=== PATIENT | female | born 1955 | race Caucasian/White ===

== ENCOUNTER 2018-11-19 16:44 | Emergency (ER) | payer OTHER ==
--- OUTSIDE RECORDS SUMMARY | 2018-11-19 16:46 | XMS REPORT | Clinical Summary ---
:1955 Author Organization [facility] Address [address] [place] [address] Care Team Providers Name Role Phone Slime Werner Primary Care Provider Allergies No Known Allergies Medications Medication Sig Dispensed Refills Start Date End Date Status telmisartan-hydrochlorot Take 1 tablet by 0 Active hiazid (MICARDIS HCT) mouth daily. 40-12.5 mg per tablet metFORMIN (GLUCOPHAGE) Take 500 mg by 0 Active 500 mg tablet mouth 2 (two) times a day with meals. levothyroxine Take 50 mcg by 0 Active (SYNTHROID, LEVOXYL) 50 mouth every mcg tablet morning. atorvastatin (LIPITOR) Take 40 mg by 0 Active 40 MG tablet mouth daily. Active Problems Problem Noted Date Precordial pain 12/16/2016 Essential hypertension 12/16/2016 Mixed hyperlipidemia 12/16/2016 Acquired hypothyroidism 12/16/2016 Hx of renal cell cancer 12/16/2016 Type 2 diabetes mellitus without complication 12/16/2016 Family History Relation Name Status Comments Father Mother Social History Tobacco Use Types Packs/Day Years Used Date Former Smoker Sex Assigned at Date Recorded Not on file Job Start Date Occupation Industry Not on file Not on file Not on file Travel History Travel Start Travel End No recent travel history available. Last Filed Vital Signs Not on file Plan of Treatment Health Maintenance Due Date Last Done Comments DIABETIC RETINAL EYE EXAM 1955 DIABETIC FOOT EXAM 02/21/1966 CERVICAL CANCER SCREENING 02/21/1977 BREAST CANCER SCREENING 02/21/2006 COLON CANCER SCREENING 02/21/2006 SHINGLES VACCINES (#1) 02/21/2006 INFLUENZA VACCINE 03/23/2018 Results Not on fileafter 11/18/2017 Insurance Payer Benefit Plan / Group Subscriber ID Type Phone Address [facility] x[facility] AETNA AETNA PPO OPEN CHOICE xxxxxxxxx PPO [id number] [id number] (Home) [place] [id number]
--- OUTSIDE RECORDS SUMMARY | 2018-11-19 16:46 | XMS REPORT | Clinical Summary ---
:1955 Author Organization [facility] Address [address] [place] [address] Care Team Providers Name Role Phone Unavailable Primary Care Provider Unavailable Allergies Not on File Medications Not on file Active Problems Not on file Social History Tobacco Use Types Packs/Day Years Used Date Never Assessed Sex Assigned at Date Recorded Not on file Job Start Date Occupation Industry Not on file Not on file Not on file Travel History Travel Start Travel End No recent travel history available. Last Filed Vital Signs Not on file Plan of Treatment Not on file Results Not on fileafter 11/18/2017 Insurance Payer Benefit Plan / Group Subscriber ID Type Phone Address AETNA - [employer]GD CARE AETNA HMO POS QPOS xxxxxxxxx HMO/POS FOR LIFE xxxxxxxxx Other Govt (, [place], [place], etc.) xxxxxxxxx Other Govt (, [place], [place], etc.)
[2018-11-19 17:35] LABS: Absolute Lymphocytes (CBC) 3.3 K/uL (0.7-4.9); Absolute Monocytes 0.8 K/uL (0.1-1.3); Absolute Neutrophil 5.6 K/uL (1.8-8.0); Hematocrit 42.8 % (36.0-45.0); MPV 10.4 fL (7.6-11.3); Monocytes % 7.6 % (3.3-12.3); RBC Red Blood Cell Count 4.63 M/uL (3.86-4.86)
[2018-11-19 17:44] LABS: ALT/SGPT 50 U/L (12-78); AST/SGOT 27 U/L (15-37); Albumin 3.8 g/dL (3.4-5.0); Alkaline Phosphatase 142 U/L (45-117); BUN Blood Urea Nitrogen 15 mg/dL (7-18); Bicarbonate 26 mmol/L (21-32); Bilirubin Direct < 0.1 mg/dL (0-0.2); Bilirubin Total 0.3 mg/dL (0.2-1.0); Glucose Level 113 mg/dL (74-106); Lipase 142 U/L (73-393); Protein, Total 7.3 g/dL (6.4-8.2); Sodium Level 143 mmol/L (136-145)
--- NOTE | 2018-11-19 19:59 | RAD REPORT ---
EXAM DESCRIPTION: CTAbdomen Pelvis W Contrast - 11/19/2018 7:47 pm CLINICAL HISTORY: Abdominal pain. ABD PAIN COMPARISON: CT ABDOMEN PELVIS WO CONTRAST dated 05/06/2015 TECHNIQUE: Biphasic CT imaging of the abdomen and pelvis was performed with 100 ml non-ionic IV cont rast. All CT scans are performed using dose optimization technique as appropriate and may include automated exposure control or mA/KV adjustment according to patient size. FINDINGS: Mild linear opacities are present in the posterior right lung base likely representing min imal infiltrate or atelectasis.Moderate hiatal hernia. Diffuse fatty liver is present. Cholecystectomy clips are seen. The spleen, pancreas and right adrena l gland is normal. The left adrenal gland contains an 8 mm myelolipoma. 17 mm parapelvic right renal cyst is present. No right-sided hydronephrosis. Two stones are present in the mid left ureter, the in ferior stone measuring 6 mm and the slightly more superior stone measuring 4 mm. Mild left hydronephr osis is present. Postsurgical changes are present involving the left kidney. No bowel obstruction, free air, free fluid or abscess. Sigmoid diverticulosis is present without dive rticulitis. The appendix is not identified as a discrete structure, however, no secondary findings of appendicitis are identified. Small to moderate fat containing ventral hernia is present. Ventral he rnia is also present inferior anterior pelvis, also containing fat. No evidence of significant lympha denopathy. No suspicious bony findings. IMPRESSION: Two calculi are noted in the mid left ureter as detailed resulting in mild left hydronep hrosis. Fat containing ventral hernias are present in the lower abdomen and pelvis without bowel involvement. Sigmoid diverticulosis coli is present without diverticulitis. Fatty liver.
[2018-11-19] MEDS ORDERED: MAGNESIUM SULFATE 1 gm IVPB 1 GM/100 ML BAG IV ONE (20:29)
[2018-11-19] MEDS ORDERED: NA CHLORIDE 0.9% 1,000 ML ONE (20:29)
[2018-11-19] MEDS ORDERED: TAMSULOSIN 0.4 MG SR CAP ONE (20:29)
[2018-11-19] MEDS ORDERED: CEFTRIAXONE/SWI 1gm 1 GM/10 ML SYR ONE (20:30)
--- NOTE | 2018-11-19 22:21 | ER ---
Nurse's Notes [facility] Name: Lotus Choi Age: 63 yrs Sex: Female : 1955 Arrival Date: 11/19/2018 Time: 16:48 Bed 16 Private MD: Diagnosis: Calculus of ureter-Left times 2;Ventral hernia without obstruction or gangrene-times 2 Presentation: 11/19 16:51 Presenting complaint: Patient states: I have been having a "pulling pain" on my right la1 side of my belly and when I cough I feel a knot that comes up. Pt denies N/V/D or fevers. Transition of care: patient was not received from another setting of care. Onset of symptoms was November 19, 2018. Risk Assessment: Do you want to hurt yourself or someone else? Patient reports no desire to harm self or others. Initial Sepsis Screen: Does the patient meet any 2 criteria? No. Patient's initial sepsis screen is negative. Does the patient have a suspected source of infection? No. Patient's initial sepsis screen is negative. Care prior to arrival: None. 16:51 Method Of Arrival: Ambulatory la1 16:51 Acuity: JENNIFER 3 la1 Historical: - Allergies: 16:52 No Known Allergies; la1 - PMHx: 16:52 Diabetes - NIDDM; Hypertension; Hypothyroidism; la1 - PSHx: 16:52 Hysterectomy; Kidney Ca; la1 - Immunization history:: Adult Immunizations up to date. - Social history:: Smoking status: Patient/guardian denies using tobacco. - Ebola Screening: : No symptoms or risks identified at this time. - Family history:: not pertinent. - Hospitalizations: : No recent hospitalization is reported. Screenin:54 Abuse screen: Denies threats or abuse. Nutritional screening: No deficits noted. tw2 Tuberculosis screening: No symptoms or risk factors identified. Fall Risk None identified. Assessment: 17:26 General: Appears in no apparent distress. obese, well groomed, Behavior is calm, tw2 cooperative, appropriate for age. Pain: Complains of pain in right lower quadrant. Neuro: Level of Consciousness is awake, alert, obeys commands, Oriented to person, place, time, situation. Cardiovascular: Heart tones S1 Capillary refill < 3 seconds Patient's skin is warm and dry. Respiratory: Airway is patent Respiratory effort is even, unlabored, Respiratory pattern is regular, symmetrical, Breath sounds are clear bilaterally. GI: Abdomen is round non-distended, obese, Bowel sounds present X 4 quads. Reports lower abdominal pain, normal bowel habits, "a tearing sensation that comes and goes" Patient currently denies nausea, vomiting. : No signs and/or symptoms were reported regarding the genitourinary system. EENT: No signs and/or symptoms were reported regarding the EENT system. Derm: No signs and/or symptoms reported regarding the dermatologic system. Musculoskeletal: Range of motion: intact in all extremities. 17:45 Reassessment: PT COMPLETED ORAL CONTRAST AT THIS TIME, no answer in CT dept. tw2 17:58 Reassessment: Patient appears in no apparent distress at this time. No changes from tw2 previously documented assessment. Patient and/or family updated on plan of care and expected duration. Pain level reassessed. Patient is alert, oriented x 3, equal unlabored respirations, skin warm/dry/pink. 18:36 Reassessment: Patient appears in no apparent distress at this time. No changes from tw2 previously documented assessment. Patient and/or family updated on plan of care and expected duration. Pain level reassessed. Patient is alert, oriented x 3, equal unlabored respirations, skin warm/dry/pink. 19:00 General: Appears in no apparent distress. comfortable, obese, well groomed, Behavior is rr5 calm, cooperative, appropriate for age. Pain: Complains of pain in right lower quadrant Quality of pain is described as aching, Pain began gradually, Is intermittent. Neuro: Level of Consciousness is awake, alert, obeys commands, Oriented to person, place, time, situation. Cardiovascular: Capillary refill < 3 seconds Patient's skin is warm and dry. Respiratory: Airway is patent Respiratory effort is even, unlabored, Respiratory pattern is regular, symmetrical. GI: Abdomen is round non-distended, obese, Reports lower abdominal pain, Patient currently denies nausea, vomiting. : Reports pain flank(s). 19:00 Reassessment: awaiting for CT scan due. oral contrast consumed at 1745. CT staff aware. rr5 EENT: No signs and/or symptoms were reported regarding the EENT system. Derm: Skin temperature is warm. Musculoskeletal: Capillary refill < 3 seconds, Range of motion: intact in all extremities. 19:50 Reassessment: Patient appears in no apparent distress at this time. Patient is alert, rr5 oriented x 3, equal unlabored respirations, skin warm/dry/pink. back from CT scan. 20:25 Reassessment: Patient appears in no apparent distress at this time. Patient is alert, rr5 oriented x 3, equal unlabored respirations, skin warm/dry/pink. reassess by ED provider with additional order made and carried out. CT result of kidney stone. 21:00 Reassessment: Patient appears in no apparent distress at this time. No changes from rr5 previously documented assessment. awaiting for result. 22:00 Reassessment: Patient appears in no apparent distress at this time. Patient is alert, rr5 oriented x 3, equal unlabored respirations, skin warm/dry/pink. audible wheezing sound, ED provider informed with order made and carried out. 22:50 Reassessment: Patient appears in no apparent distress at this time. Patient is alert, rr5 oriented x 3, equal unlabored respirations, skin warm/dry/pink. discharge instruction given and explained without complaints made. Patient states symptoms have improved. Vital Signs: 16:52 BP 164 / 84; Pulse 96; Resp 16; Temp 98.6; Pulse Ox 98% on R/A; Weight 99.79 kg; Height la1 5 ft. 6 in. (167.64 cm); 17:57 BP 147 / 84; Pulse 72; Resp 17; Pulse Ox 96% on R/A; tw2 18:35 BP 130 / 76; Pulse 80; Resp 17; Pulse Ox 96% on R/A; tw2 19:00 BP 127 / 86; Pulse 75; Resp 18; Temp 98.1; Pulse Ox 96% ; rr5 20:00 BP 138 / 83; Pulse 77; Resp 19; Pulse Ox 97% ; rr5 21:00 BP 145 / 76; Pulse 79; Resp 20; Pulse Ox 98% ; rr5 22:00 BP 134 / 65; Pulse 80; Resp 17; Pulse Ox 97% ; rr5 22:50 BP 133 / 70; Pulse 75; Resp 19; Pulse Ox 98% ; rr5 16:52 Body Mass Index 35.51 (99.79 kg, 167.64 cm) la1 ED Course: 16:48 Patient arrived in ED. mr 16:52 Triage completed. la1 16:53 Arm band placed on left wrist. la1 16:54 Janet Anand RN is Primary Nurse. tw2 16:54 Froilan Cardona MD is Attending Physician. rn 16:54 Bed in low position. Call light in reach. surveillance monitor on. Pulse ox on. NIBP on. tw2 17:15 Missed attempt(s): 22 gauge in left antecubital area. Bleeding controlled, band aid tw2 applied, catheter tip intact. 17:26 Inserted saline lock: 22 gauge in right antecubital area, using aseptic technique. tw2 18:25 Charles Crum PA is PHCP. cp 18:56 Report given to HEATHER Lazo. tw2 19:41 CT completed. Patient tolerated procedure well. Patient moved back from CT. bq 19:48 CT Abd/Pelvis - W/Contrast In Process Unspecified. EDMS 22:16 XRAY KUB: please give patient copy of film In Process Unspecified. EDMS 22:18 Weston Subramanian MD is Referral Physician. cp 22:18 Jeanne Choi MD is Referral Physician. cp 22:50 No provider procedures requiring assistance completed. IV discontinued, intact, rr5 bleeding controlled, No redness/swelling at site. Pressure dressing applied. 11/20 01:01 Attending Physician role handed off by Froilan Cardona MD rr5 01:01 Primary Nurse role handed off by Janet Anand RN rr5 Administered Medications: 11/19 20:30 Drug: Flomax 0.4 mg Route: PO; rr5 22:50 Follow up: Response: No adverse reaction rr5 20:31 Drug: NS 0.9% 1000 ml Route: IV; Rate: 1 bolus; Site: right antecubital; rr5 22:30 Follow up: Response: No adverse reaction; IV Status: Completed infusion; IV Intake: rr5 1000ml 20:32 Dru grams of (Magnesium Sulfate 1 grams, NS 0.9% 100 ml) Route: IVPB; Infused Over: rr5 1 hrs; Site: right antecubital; 21:30 Follow up: Response: No adverse reaction; IV Status: Completed infusion; IV Intake: rr5 100ml 21:38 Drug: Rocephin - (cefTRIAXone) 1 grams Route: IVPB; Infused Over: 30 mins; Site: right rr5 antecubital; 22:10 Follow up: Response: No adverse reaction; IV Status: Completed infusion rr5 22:00 Drug: Albuterol 2.5 mg Route: Inhalation; rr5 22:50 Follow up: Response: No adverse reaction rr5 22:00 Drug: AtroVENT Aerosol 0.5 mg Route: Inhalation; rr5 22:50 Follow up: Response: No adverse reaction rr5 Intake: 21:30 IV: 100ml; Total: 100ml. rr5 22:30 IV: 1000ml; Total: 1100ml. rr5 Outcome: 22:20 Discharge ordered by MD. cp 22:50 Discharged to home ambulatory, with family. rr5 22:50 Condition: stable 22:50 Discharge instructions given to patient, Instructed on discharge instructions, follow up and referral plans. medication usage, Demonstrated understanding of instructions, follow-up care, medications, Prescriptions given X 4. 22:52 Patient left the ED. rr5 11/20 01:09 Patient left the ED. rr5 Signatures: Dispatcher [employer] EDNE Julia Brumfield Betty bq Nieto, Roman, MD MD rn Attema, Lee RN RN la1 Charles Crum PA PA Janet Flood RN RN tw2 Clifton Boucher, HEATHER RN rr5
--- NOTE | 2018-11-19 22:21 | EDPHYS ---
Physician Documentation [facility] Name: Lotus Choi Age: 63 yrs Sex: Female : 1955 Arrival Date: 11/19/2018 Time: 16:48 Bed 16 Private MD: ED Physician HPI: 11/19 17:09 This 63 yrs old Female presents to ER via Ambulatory with complaints of rn abdominal swelling. 17:09 The patient presents with abdominal pain right lower quadrant. Onset: The rn symptoms/episode began/occurred 1 year(s) ago. The symptoms do not radiate. Associated signs and symptoms: Pertinent negatives: nausea and vomiting, diarrhea, fever, hematuria, vomiting. Modifying factors: The symptoms are alleviated by nothing, the symptoms are aggravated by coughing and touching area. Severity of pain: At its worst the pain was mild in the emergency department the pain is unchanged. The patient has not experienced similar symptoms in the past. The patient has not recently seen a physician. Reports has had RLQ "pulling" stretching sensation for almost one year, just recently this week noticed bulge to RLQ, only protrudes when lying down and coughing, mild tenderness, no vomiting/diarrhea/fever. + previous abd surgery with hysterectomy. . Historical: - Allergies: 16:52 No Known Allergies; la1 - PMHx: 16:52 Diabetes - NIDDM; Hypertension; Hypothyroidism; la1 - PSHx: 16:52 Hysterectomy; Kidney Ca; la1 - Immunization history:: Adult Immunizations up to date. - Social history:: Smoking status: Patient/guardian denies using tobacco. - Ebola Screening: : No symptoms or risks identified at this time. - Family history:: not pertinent. - Hospitalizations: : No recent hospitalization is reported. ROS: 17:09 Constitutional: Negative for fever, chills, and weight loss, Eyes: Negative for injury, rn pain, redness, and discharge, Cardiovascular: Negative for chest pain, palpitations, and edema, Respiratory: Negative for shortness of breath, cough, wheezing, and pleuritic chest pain, Abdomen/GI: Negative for nausea, vomiting, diarrhea, and constipation, MS/Extremity: Negative for injury and deformity, Skin: Negative for injury, rash, and discoloration, Neuro: Negative for headache, weakness, numbness, tingling, and seizure. Exam: 17:09 Constitutional: This is a well developed, well nourished patient who is awake, alert, rn and in no acute distress. Abdomen/GI: soft, mild approx 6cm bulge RLQ with cough, mild tenderness around that area, no peritoneal signs, no rash. Vital Signs: 16:52 BP 164 / 84; Pulse 96; Resp 16; Temp 98.6; Pulse Ox 98% on R/A; Weight 99.79 kg; Height la1 5 ft. 6 in. (167.64 cm); 17:57 BP 147 / 84; Pulse 72; Resp 17; Pulse Ox 96% on R/A; tw2 18:35 BP 130 / 76; Pulse 80; Resp 17; Pulse Ox 96% on R/A; tw2 19:00 BP 127 / 86; Pulse 75; Resp 18; Temp 98.1; Pulse Ox 96% ; rr5 20:00 BP 138 / 83; Pulse 77; Resp 19; Pulse Ox 97% ; rr5 21:00 BP 145 / 76; Pulse 79; Resp 20; Pulse Ox 98% ; rr5 22:00 BP 134 / 65; Pulse 80; Resp 17; Pulse Ox 97% ; rr5 22:50 BP 133 / 70; Pulse 75; Resp 19; Pulse Ox 98% ; rr5 16:52 Body Mass Index 35.51 (99.79 kg, 167.64 cm) la1 MDM: 16:54 Patient medically screened. rn 21:37 Physician consultation: Jeanne Choi MD was called at 21:37, was contacted at 21:37, regarding patient's condition, outpatient follow-up, 11-21-2018 and will see patient in office. 22:15 Data reviewed: vital signs, nurses notes, lab test result(s), radiologic studies, CT cp scan. 22:15 Counseling: I had a detailed discussion with the patient and/or guardian regarding: the cp historical points, exam findings, and any diagnostic results supporting the discharge/admit diagnosis, lab results, radiology results, the need for outpatient follow up, for definitive care, a general surgeon, a urologist, to return to the emergency department if symptoms worsen or persist or if there are any questions or concerns that arise at home. Response to treatment: the patient's symptoms have markedly improved after treatment, and as a result, I will discharge patient. ED course: VSS. Pain improved. Patient denies pain on left flank or abdominal area. Will discharge to home for continued monitoring. 11/19 17:07 Order name: Basic Metabolic Panel; Complete Time: 17:45 rn 11/19 20:46 Interpretation: Normal except: CL 110; GLUC 113; GFR 59. cp 11/19 17:07 Order name: CBC with Diff; Complete Time: 17:45 rn 11/19 17:07 Order name: Hepatic Function; Complete Time: 17:45 rn 11/19 17:07 Order name: Lipase; Complete Time: 17:45 rn 11/19 20:10 Order name: Urine Microscopic Only cp 11/19 20:10 Order name: Urine Microscopic Only; Complete Time: 07:08 EDMS 11/19 17:07 Order name: CT Abd/Pelvis - W/Contrast; Complete Time: 20:04 rn 11/19 21:37 Order name: XRAY KUB: please give patient copy of film 11/19 17:07 Order name: IV Saline Lock; Complete Time: 17:26 rn 11/19 17:07 Order name: Labs collected and sent; Complete Time: 17:26 rn 11/19 20:10 Order name: Urine Dipstick-Ancillary (obtain specimen); Complete Time: 22:17 cp Administered Medications: 20:30 Drug: Flomax 0.4 mg Route: PO; rr5 22:50 Follow up: Response: No adverse reaction rr5 20:31 Drug: NS 0.9% 1000 ml Route: IV; Rate: 1 bolus; Site: right antecubital; rr5 22:30 Follow up: Response: No adverse reaction; IV Status: Completed infusion; IV Intake: rr5 1000ml 20:32 Dru grams of (Magnesium Sulfate 1 grams, NS 0.9% 100 ml) Route: IVPB; Infused Over: rr5 1 hrs; Site: right antecubital; 21:30 Follow up: Response: No adverse reaction; IV Status: Completed infusion; IV Intake: rr5 100ml 21:38 Drug: Rocephin - (cefTRIAXone) 1 grams Route: IVPB; Infused Over: 30 mins; Site: right rr5 antecubital; 22:10 Follow up: Response: No adverse reaction; IV Status: Completed infusion rr5 22:00 Drug: Albuterol 2.5 mg Route: Inhalation; rr5 22:50 Follow up: Response: No adverse reaction rr5 22:00 Drug: AtroVENT Aerosol 0.5 mg Route: Inhalation; rr5 22:50 Follow up: Response: No adverse reaction rr5 Disposition: 11/20 07:07 Co-signature as Attending Physician, Froilan Cardona MD. rn Disposition: 11/19/18 22:20 Discharged to Home. Impression: Calculus of ureter - Left times 2, Ventral hernia without obstruction or gangrene - times 2. - Condition is Stable. - Discharge Instructions: Kidney Stones, Ventral Hernia. - Prescriptions for Zofran 4 mg Oral Tablet - take 1 tablet by ORAL route every 12 hours As needed; 20 tablet. Flomax 0.4 mg Oral Capsule, Sust. Release 24 hr - take 1 capsule by ORAL route once daily for 5 days 1/2 hour following the same meal each day; 5 capsule. Cipro 500 mg Oral Tablet - take 1 tablet by ORAL route every 12 hours for 7 days; 14 tablet. Tramadol 50 mg Oral Tablet - take 1 tablet by ORAL route every 8 hours as needed; 20 tablet. - Medication Reconciliation Form, Thank You Letter, Antibiotic Education, Prescription Opioid Use form. - Follow up: Weston Subramanian MD; When: 2 - 3 days; Reason: Ventral hernias. Follow up: Jeanne Choi MD; When: 11-21-2018 \\T\\0800; Reason: left ureter stones. - Problem is new. - Symptoms have improved. Signatures: Dispatcher [employer] EDFroilan Elias MD MD rn Attema, Lee, RN RN la1 Charles Crum PA PA cp Roque, Raymond, RN RN rr5 Corrections: (The following items were deleted from the chart) 11/19 22:52 22:20 11/19/2018 22:20 Discharged to Home. Impression: Calculus of ureter - Left times rr5 2; Ventral hernia without obstruction or gangrene - times 2. Condition is Stable. Forms are Medication Reconciliation Form, Thank You Letter, Antibiotic Education, Prescription Opioid Use. Follow up: Weston Subramanian; When: 2 - 3 days; Reason: Ventral hernias. Follow up: Jeanne Choi; When: 11-21-2018 \\T\\0800; Reason: left ureter stones. Problem is new. Symptoms have improved. cp 11/20 01:09 11/19 22:52 11/19/2018 22:20 Discharged to Home. Impression: Calculus of ureter - Left rr5 times 2; Ventral hernia without obstruction or gangrene - times 2. Condition is Stable. Discharge Instructions: Kidney Stones, Ventral Hernia. Prescriptions for Zofran 4 mg Oral Tablet - take 1 tablet by ORAL route every 12 hours As needed; 20 tablet, Flomax 0.4 mg Oral Capsule, Sust. Release 24 hr - take 1 capsule by ORAL route once daily for 5 days 1/2 hour following the same meal each day; 5 capsule, Cipro 500 mg Oral Tablet - take 1 tablet by ORAL route every 12 hours for 7 days; 14 tablet, Tramadol 50 mg Oral Tablet - take 1 tablet by ORAL route every 8 hours as needed; 20 tablet. and Forms are Medication Reconciliation Form, Thank You Letter, Antibiotic Education, Prescription Opioid Use. Follow up: Weston Subramanian; When: 2 - 3 days; Reason: Ventral hernias. Follow up: Jeanne Choi; When: 11-21-2018 \\T\\0800; Reason: left ureter stones. Problem is new. Symptoms have improved. rr5
[2018-11-19 22:59] LABS: Urine Bacteria <20 /HPF (<20); Urine Culture Reflex Order REFLEXED; Urine RBC <5 /HPF (NONE SEEN)
[2018-11-19 23:39] VITALS: TEMP 98.1
[2018-11-20] MEDS ORDERED: IPRATROPIUM BROM 0.5MG/2.5ML ONE (01:19)
[2018-11-20] MEDS ORDERED: ALBUTEROL 2.5 MG/3 ML NEB SOL ONE (01:19)
[2018-11-20 04:06] VITALS: BP 133/70; O2SAT 98
--- NOTE | 2018-11-20 08:46 | RAD REPORT ---
EXAM DESCRIPTION: RAD - Abdomen 1 View (KUB) - 11/19/2018 10:16 pm CLINICAL HISTORY: Right-sided abdominal pain COMPARISON: CT study November 19 FINDINGS: Bowel gas pattern is non-specific. No obstruction, free air or pneumatosis. Contrast is p resent in the and GI systems from the earlier CT study. No extravasation of any of the contrast ma terial. No significant bony findings IMPRESSION: Negative KUB examination for acute or significant finding.
== END 2018-11-20 01:09 | disposition home or self-care (01) ==
LOC: ER 16:44
DX: N20.1 Calculus of ureter (principal); K43.9 Ventral hernia without obstruction or gangrene; E11.9 Type 2 diabetes mellitus without complications; I10 Essential (primary) hypertension; E03.9 Hypothyroidism, unspecified
CPT/HCPCS: 36415; 74018; 74177; 80048; 80076; 81015; 83690; 85025; 87086; 87088; 96365; 96367; 99285; J0696; J3475; J7030; Q9967

== ENCOUNTER 2018-12-01 07:17 | Day surgery (SDC) | payer OTHER ==
--- OUTSIDE RECORDS SUMMARY | 2018-12-01 07:20 | XMS REPORT | Clinical Summary ---
:1955 Author Organization [facility] Address [address] [place] [address] Care Team Providers Name Role Phone Unavailable [...] Not on file Results Not on fileafter 11/30/2017 Insurance Payer Benefit Plan / Group Subscriber ID Type Phone Address [employer] - [employer] CARE AETNA HMO POS QPOS xxxxxxxxx HMO/POS FOR LIFE xxxxxxxxx Other Govt (, [place], [place], etc[place] xxxxxxxxx Other Govt (, [place], [place], etc.)
--- OUTSIDE RECORDS SUMMARY | 2018-12-01 07:20 | XMS REPORT | Clinical Summary ---
:1955 Author Organization [facility] Address [address] [place] [address] Care Team Providers Name Role Phone Slime [...] 02/21/2006 SHINGLES VACCINES (#1) 02/21/2006 INFLUENZA VACCINE 03/23/2019 Results Not on fileafter 11/30/2017 Insurance Payer Benefit Plan / Group Subscriber ID Type Phone Address [facility] xxxxxxxxx AETNA AETNA PPO OPEN CHOICE xxxxxxxxx [id number] [address] [place] [id number]
--- OUTSIDE RECORDS SUMMARY | 2018-12-01 07:20 | XMS REPORT ---
:1955 Author Organization eClinicalWorks Care Team Providers Name Role Phone Weston Subramanian Provider Role Unavailable Allergies, Adverse Reactions, Alerts Substance Reaction Event Type N.K.D.A. Info Not Available Non Drug Allergy Problems Problem Type Condition Code Onset Dates Condition Status Assessment Ventral hernia without obstruction or K43.9 Active gangrene Medications Medication Code Code Instructions Start End Status Dosage System Date Date Atorvastatin [facility] 38829405451 40 MG Orally Active 1 tablet Calcium Once a day Telmisartan-HCTZ [facility] 66290098853 40-12.5 MG Active 1 tablet Orally Once a day Levothyroxine ND 60747969441 50 MCG Orally Active 1 tablet Sodium Once a day on an empty stomach in the morning Metformin HCl ND 66746119854 500 MG Orally Active 1 tablet Once a day with a meal Results No Known Results Summary Purpose eClinicalWorks Submission
[2018-12-01] MEDS ORDERED: CEFAZOLIN/SWI 2gm 2 GM/20 ML SYR ONE (07:34)
[2018-12-01] MEDS ORDERED: NA CHLORIDE 0.9% 1,000 ML ONE ×2 (07:34→09:08)
[2018-12-01] MEDS ORDERED: ROCURONIUM 50 MG/5 ML VIAL IV ONE (07:56)
[2018-12-01] MEDS ORDERED: FENTANYL CITR 100 MCG/2 ML ONE (07:56)
[2018-12-01] MEDS ORDERED: PROPOFOL 200 MG/20 ML VIAL IV ONE (07:56)
[2018-12-01] MEDS ORDERED: BUPIVACA 0.25%/EPI 0.0005% MDV 50 ML VIAL ONE (07:56)
[2018-12-01] MEDS ORDERED: LIDOCAINE 1% MPF 5 ML VIAL ONE (07:56)
[2018-12-01] MEDS ORDERED: MIDAZOLAM HCL 2 MG/2 ML INJ ONE (07:56)
[2018-12-01] MEDS ORDERED: SCOPOLAMINE HYDROBROMIDE PATCH TD ONE (08:07)
[2018-12-01] MEDS ORDERED: GLYCOPYRROLATE 0.2 MG/ML SYR ONE (08:54)
[2018-12-01] MEDS ORDERED: NEOSTIGMINE 1 MG/ML -10 ML VIAL ONE (08:55)
[2018-12-01] MEDS ORDERED: ONDANSETRON 4 MG/2 ML VIAL ONE (08:55)
[2018-12-01] MEDS ORDERED: KETOROLAC 30 MG/ML INJ ONE (08:55)
--- NOTE | 2018-12-01 09:51 | P.OP ---
Preoperative diagnosis: Multiple Abdominal Wall Ventral Hernias Postoperative diagnosis: Multiple Abdominal Wall Ventral Hernias Primary procedure: Laparoscopic Ventral Hernia Repair Secondary procedure: Laparoscopic Adhesiolysis Anesthesia: GETA + Local Estimated blood loss: <10cc Specimen: None Findings: Multiple abdominal wall hernias Complications: None Implants: 8"x 10" Bard Ventralite ST mesh with echo position Transferred to: Recovery Room Condition: Good
[2018-12-01] MEDS ORDERED: PROMETHAZINE 25 MG/ML VIAL ONE (10:12)
[2018-12-01] MEDS: HYDROMORPHONE HCL 1 MG/ML INJ ONE ×2 (10:20→10:28)
[2018-12-01 11:11] VITALS: TEMP 97.4
[2018-12-01] MEDS ORDERED: HYDROCODONE/APAP 7.5/325 MG TAB ONE (12:33)
[2018-12-01 13:32] VITALS: BP 125/76; O2SAT 97
--- NOTE | 2018-12-01 20:39 | OP ---
Date of Procedure: 12/01/2018 Surgeon: Weston Subramanian MD, Preoperative Diagnosis: Multiple abdominal wall ventral hernias. Postoperative Diagnosis: Multiple abdominal wall ventral hernias. Procedures Performed: 1.Laparoscopic ventral hernia repair with mesh. 2.Laparoscopic adhesiolysis. Anesthesia: General endotracheal plus local with 0.25% Marcaine. Estimated Blood Loss: Less than 10 cc. Specimen: None. Findings: Multiple abdominal wall hernias in the midline and lateral abdominal wall. Some had a susy neling component to them. Complications: None. Implants: An 8 inch x [address] mesh with Echo Positioning System. Disposition: Transferred to recovery room in good condition. Procedure In Detail: After informed consent was obtained, the patient was brought to the operating r oom, prepped and draped in the usual sterile fashion. After adequate anesthesia was achieved, a left upper quadrant incision was made for approximately 5 mm. This was appropriately anesthetized and a 5 mm 0-degree optical trocar was introduced in the abdomen without evidence of complication. Insuffl ation was obtained to 15 mmHg at this time. The abdomen was inspected. There was no injury to vital structures upon entry into the abdomen. The hernias were appreciated at the time on inspection. Th ere were multiple fat-containing hernias to the midline abdominal wall and had a somewhat Mexican chees e type appearance. Additional trocar site was chosen in the left lower quadrant, and this was simila r anesthetized and sharply incised. A 5 mm trocar was introduced in the abdomen without evidence of complication. The original left upper quadrant trocar was then upsized to a 12 mm under direct visua lization without evidence of complication. Two additional trocars were placed, both in the right upp er quadrant and right lower quadrant. These were similarly anesthetized and sharply incised, and the re were both 5 mm trocars placed under direct visualization without evidence of complication. The pa tient was then positioned appropriately throughout the procedure to allow for optimal visualization a nd sweeping of the omental contents away from the ventral hernia. The EnSeal device was used to maria elena ve the ventral hernias fat contents from the abdominal wall using a combination of sharp and blunt di ssection as well as the bipolar electrocautery of the EnSeal device. After the hernias were complete ly swept clean, the abdominal wall was inspected and a good landing spot was appropriately sized, as there were multiple defects, they were sized, and the largest mesh we have, which is an 8 inch x 10 i [facility] Bard Ventralight ST Echo Positioning System mesh was brought in, sized appropriately with 5 cm of underlay from all peripheral margins of the hernia, was sized appropriately, and as such was brought in through the left upper quadrant 12 mm trocar. The insufflation system was then deployed using a small incision in the infraumbilical position and the deployment system was engaged at this time. Th e mesh was encircled appropriately and ensured to overlap all of the hernias with a minimum of 5 cm o f underlay. The SorbaFix absorbable fixation system was then used to circumferentially put a crown o n at this time. The balloon deployment system was then removed, and a second crown was placed with a dditional absorbable fixation tacks. In addition, a third row of tacks was placed in the abdominal w all as well as to approximate the central portion of the mesh for good apposition to the abdominal wa ll. There was some bleeding from 1 of the tacks on the left lower quadrant on the lateral abdominal wall. This was controlled by making a small stab incision and passing a Edinson-Elia suture passe r through the mesh and around this area and tying a 0 Vicryl suture through this with good approximat ion of the mesh to the abdominal wall and complete cessation of all bleeding. The area was then insp ected for proper hemostasis, which was achieved this time. All of the remaining tacks were then depl oyed for a total of 90 tacks placed into the abdominal wall. The abdomen was then desufflated and in spected and the mesh remained in good apposition to the abdominal wall. At this time, the 12 mm troc ar was removed. The 12 mm trocar site was closed using a Edinson-Elia suture passer with a 0 Vicr yl in interrupted fashion with good approximation of tissues, and the abdomen was desufflated under d irect visualization without evidence of complication. All trocars were then removed. All skin incis ions were copiously irrigated and closed with a 4-0 Monocryl in a running fashion. Dermabond was joselyn olvin over the top. The patient tolerated the procedure well without evidence of complication, was tra nsferred to the PACU in good condition. All counts were correct at the end of the case. TK/MODL Voice ID: [id number] Report ID: [id number]
== END 2018-12-01 13:19 | disposition home or self-care (01) ==
LOC: OR 07:17
PROVIDERS: ATTEND Surgery
PROC: 0WUF4JZ Supplement Abdominal Wall with Synthetic Substitute, Percutaneous Endoscopic Approach (ICD-10-PCS; principal; 2018-12-01 09:15)
DX: K43.9 Ventral hernia without obstruction or gangrene (principal); E11.9 Type 2 diabetes mellitus without complications; I10 Essential (primary) hypertension; E78.00 Pure hypercholesterolemia, unspecified; Z85.528 Personal history of other malignant neoplasm of kidney; Z90.49 Acquired absence of other specified parts of digestive tract
CPT/HCPCS: 82962; J0690; J1170; J2250; J2405; J2550; J2704; J2710; J3010; J7030

== ENCOUNTER 2021-12-09 16:10 | Emergency (ER) | payer OTHER ==
--- OUTSIDE RECORDS SUMMARY | 2021-12-09 16:13 | XMS REPORT | Continuity of Care Document ---
:1955 Author Organization [facility] t Address [address] [place] [address] [address] [place] [address] Care Team Providers Name Role Phone GLADYS Primary Care Physician Unavailable Oren LUZ Attending Clinician OREN Attending Clinician Unavailable Pob, Lab Main Attending Clinician Unavailable Doctor Unassigned, Name Attending Clinician Unavailable Payers Payer Name Policy Type Policy Number Effective Date Expiration Date S ource Problems Condition Condition Condition Status Onset Resolution Last Treating Co mments Source Name Details Category Date Date Treatment Clinician Date Hypercalce Hypercalce Disease Active 2020-08 U nivers carmenza carmenza 2-14 ity of 00:00: [address] Postablati Postablati Disease Active 2020-08 U nivers ve ve 2-14 it[place] of [place]othyro[place] [facility] Vitamin D Vitamin D Disease Active 2020-08 Uni vers deficiency deficiency 2-14 it y of 00:00: [address] Left sided Left sided Disease Active U nivers numbness numbness 7-21 ity of 00:00: [address] Paresthesi Paresthesi Disease Active U nivers a a 7-21 ity of 00:00: [address] COVID-19 COVID-19 Disease Active Unive rs virus virus 7-12 ity of infection infection 00:00: [address] Surgery, Surgery, Disease Active Unive rs elective elective 1-17 ity of 00:00: [address] Obesity Obesity Disease Active 2020- Univers (BMI (BMI 1-16 ity of 30-39.9) 30-39.9) 00:00: [place] [facility] Hyperparat Hyperparat Disease Active 2018-08 Overview : Univers hyroidism hyroidism 2-20 Formattin i ty of 00:00: g of this note Medical might be Branch different from the original. Added automatic ally from request for surgery [id number] Thyroid Thyroid Disease Active 2018-08 Overview: Univ ers nodule nodule 2-20 Formattin ity of 00:00: g of this [place] note Medical might be Branch different from the original. Added automatic ally from request for surgery [id number] Frequency Frequency Disease Active 2018-08 Uni vers of of 2-09 ity of micturitio micturitio 00:[place] Urinary Urinary Disease Active 2018-08 Univers tract tract 1- [place] of infection infection [place] Primary Primary Disease Active 2018-08 [facility] hyperparat hyperparat 0-25 it y of hyroidism hyroidism 00:00[place] [facility] [place] Atrophic Atrophic Disease Active Unive rs vaginitis vaginitis 9- ity of 00:00: Medical Branch Gastroesop Gastroesop Disease Active 2019 U nivers hageal hageal 9-25 ity of reflux reflux 00:00: [place] disease disease Medical Branch Hypertensi Hypertensi Disease Active U nivers ve left ve left 9-25 ity of ventricula ventricula 00[place] hypertroph hypertroph Br anch y y Mild Mild Disease Active Univers anxiety anxiety 9-25 ity of 00:00: Medical Branch Acquired Acquired Disease Active Unive rs hypothyroi hypothyroi - it y of dism dism 00:00: [place] [facility] Essential Essential Disease Active Uni vers hypertensi hypertensi 4- it y of on on 00:00: [place] [facility] Mixed Mixed Disease Active Univers hyperlipid hyperlipid - it y of emia emia 00:00: [place] [facility] Personal Personal Disease Active Unive rs history of history of 4-26 it y of other other 00:00: [place] malignant malignant 00 Medi [place] neoplasm neoplasm Branch of kidney of kidney Precordial Precordial Disease Active U nivers pain pain 12-16 ity of 00:00: [place] 00 Medical [place] Controlled Controlled Disease Active U nivers type 2 type 2 - ity of diabetes diabetes 00:00: [place] mellitus mellitus 00 Medica l without without Branch complicati complicati on, on, without without long-term long-term current current use of use of insulin insulin Pyelonephr Pyelonephr Disease Active U nivers itis itis 09-22 ity of 00:00: [place] 00 Medical [place] Follow up Follow up Diagnosis Active [facility] Allergies, Adverse Reactions, Alerts Allergy Allergy Status Severity Reaction(s) Onset Inactive Treating Comm ents Source Name Type Date Date Clinician NO KNOWN Drug Active Univers ALLERGIE Class ity of S [facility] Social History Social Habit Start Date Stop Date Quantity Comments Source History SDOH University o f Alcohol Std [place] [facility] Drinks Branch History SDOH University o f Alcohol Binge [place] [facility] al Branch History SDOH University o f Alcohol Comment [place] [facility] Exposure to Not sure [facility] SARS-CoV-2 [facility] (event) Branch Alcohol intake 2021-08-05 2021-08-05 Lifetime University of 00:00:00 00:00:00 non-drinker [facility] (finding) Branch Education 2021-03-11 2021-03-11 12 University of 00:00:00 00:00:00 [facility] Tobacco use and 2019-04-11 2019-04-11 Never used Universit y of exposure 00:00:00 00:00:00 [facility] History SDOH 2019-04-11 2019-04-11 1 University o f Alcohol Frequency 00:00:00 00:00:00 [facility] edical [place] Sex [birth year] Universit y of 00:00:00 00:00:00 [facility] Smoking Status Start Date Stop Date Source Never smoker [facility] Medications Ordered Filled Start Stop Current Ordering Indication Dosage Frequency Signature Comments Components Source Medication Medication Date Date Medication? Clinician (SIG) Name Name levothyroxi 2020-08- No 50ug Take 50 Un glenna ne 50 mcg 2-14 12-14 mcg by ity of tablet 10:08: 00:00 mouth [place] 07 :00 every Medical morning. Branch Cholecalcif 2020-08 Yes Take by Un glenna jolie, 2-14 mouth ity of Vitamin D3, 09:49: [place]. [place] (D3 DOTS) 04 Medical 50 mcg Branch (2,000 unit) tablet Magnesium 2020-08 Yes 500mg Take 500 Uni vers Oxide 500 2-14 mg by ity of mg Tab 09:49: mouth [place] 04 daily. Medical Branch EUTHYROX 2020-08 Yes Univers 100 mcg 2-06 ity of tablet 00:00: [place] 00 Medical Branch aspirin 81 Yes [id number] 81mg Take 1 U nivers mg chewable 7-22 tablet by ity of tablet 00:00: mouth [place] 00 daily. Medical Branch atorvastati Yes 40mg Take 40 mg Univers n 40 mg 7-21 by mouth. ity of tablet 21:26: Patient [place] 03 takes in Medical the Branch morning metFORMIN Yes 500mg Take 500 Uni vers 500 mg 7-21 mg by ity of tablet 21:26: mouth with [place] 03 evening Medical meal. Branch TRULICITY Yes INJECT 1 Univ ers 0.75 mg/0.5 5-19 SYRINGE ity o f mL PnIj 00:00: SUBCUTANEO [place] 00 USLY ONCE Medical A WEEK Branch pantoprazol Yes TAKE 1 Univ ers e 40 mg EC 5-19 TABLET BY ity of tablet 00:00: MOUTH ONCE [place] 00 DAILY Medical BEFORE Branch BREAKFAST DO NOT CRUSH CHEW OR SPLIT telmisartan Yes 1{tbl} Take 1 Un glenna -hydrochlor 5-17 tablet by ity of othiazide 00:00: mouth [place] 40-12.5 mg 00 daily. Medical per tablet Branch Atorvastati Atorvastati Yes Weston [address] [facility] n Calcium n Calcium Kovacev [facility] Telmisartan Telmisartan Yes Weston [address] -HCTZ -HCTZ [facility] Levothyroxi Levothyroxi Yes Weston [address] ne Sodium ne Sodium Kovacev on an L ukes - empty [facility] stomach in l the [facility] Clinics Metformin Metformin Yes Weston [address] HCl HCl Kovacev with a [facility] - meal [facility] Immunizations Ordered Filled Immunization Date Status Comments Sour e Immunization Name Name TDAP 2013-02-16 Completed [facility] 00:00:00 [facility] Vital Signs Vital Name Observation Time Observation Value Comments Source Systolic blood 2021-08-05 15:50:00 113 mm[Hg] Univer sity [facility] [place] [facility] Diastolic blood 2021-08-05 15:50:00 80 mm[Hg[facility] 2021-08-05 15:50:00 66 /min [facility] Body height 2021-08-05 15:50:00 170.2 cm [facility] Body weight 2021-08-05 15:50:00 98.431 kg [facility] BMI 2021-08-05 15:50:00 33.99 kg/m2 [facility] Oxygen saturation 2021-08-05 15:50:00 97 /min [facility] in Arterial blood Medical Br anch by Pulse oximetry Procedures This patient has no known procedures. Encounters Start End Encounter Admission Attending Care Care Encounter Source Date/Time Date/Time Type Type Clinicians Facility Department ID 2021-08-05 2021-08-05 Office Oren [facility] [id number] Univers 09:40:14 10:20:37 Visit [facility] [id number] it y of LINDSAY [id number] Marty as MICHELLE?BLEA [phone] Pa kathy [address] MEDICAL OFFICE [facility] 2021-08-05 2021-08-05 Outpatient R OREN [facility] [id number] Univers 09:30:00 10:20:37 [facility] 2020-07-26 2020-07-26 Grit Blaster Brian Mack [facility] [id number] 10:15:12 10:30:12 Visit Lab Main [place] [id number] [place] [id number] Professio [id number] [address] 2020-07-26 2020-07-26 Orders Doctor GREYSON [id number] 00:00:00 00:00:00 Only Unassigned, THIEN [id number] [place] [facility] [id number] 2020-07-16 2020-07-16 Office Swann [facility] [id number] 08:00:31 08:39:38 Visit Nalini Geiger [id number] [place] [id number] Jeff [id number] [address] 2018-12-16 2018-12-16 Outpatient Milton Rutherford [id number] 10:45:00 10:45:00 t Specialty/U Maddie k[facility] - Specialty rology [facility]rology [facility] l Clinic Outpati ent Clinics 2018-11-22 2018-11-22 Outpatient Milton Rutherford [id number] 15:00:00 15:00:00 t Specialty/U [facility]ie [facility] - Specialty ro[facility]y [facility] /Urology Clinic l Clinic Outpati ent Clinics Results This patient has no known results.
--- NOTE | 2021-12-09 18:49 | RAD REPORT ---
EXAM DESCRIPTION: RAD - Humerus Right - 12/09/2021 6:25 pm CLINICAL HISTORY: fall COMPARISON: No comparisons FINDINGS: No fracture is identified. There is no dislocation or periosteal reaction noted. Mild dege nerative changes are seen along the undersurface of the acromion. No abnormal soft tissue calcificati ons around the shoulder joint. No AC joint separation. No foreign body or other soft tissue abnormali ty. IMPRESSION: Negative right humerus examination for acute finding.
--- NOTE | 2021-12-09 18:50 | RAD REPORT ---
EXAM DESCRIPTION: RAD - Forearm Right - 12/09/2021 6:25 pm CLINICAL HISTORY: fall COMPARISON: No comparisons FINDINGS: No fracture is identified. There is no dislocation or periosteal reaction noted. Radiocarp al joint space is narrowed. There degenerative changes at the trapezium first metacarpal articulation . The trapezium, trapezoid and distal aspect of the scaphoid bone are not optimally imaged on this fo rearm examination. No foreign body or other soft tissue abnormality. IMPRESSION: Negative right forearm examination. Carpal bones are grossly clear of an acute process though detail is limited. Dedicated wrist imaging could be performed the patient has symptoms localizing to the radial side carpal bones.
--- NOTE | 2021-12-09 18:51 | RAD REPORT ---
EXAM DESCRIPTION: RAD - Knee Right 3 View - 12/09/2021 6:25 pm CLINICAL HISTORY: fall COMPARISON: No comparisons FINDINGS: No fracture, dislocation or periosteal reaction.No abnormal joint effusion. Total knee pro sthesis in place. No radiographic evidence for loosening. No foreign body or other soft tissue abnorm ality. IMPRESSION: Negative right knee for acute finding.
[2021-12-09] MEDS ORDERED: HYDROCODONE/APAP 7.5/325 MG TAB ONE (19:59)
[2021-12-09] MEDS ORDERED: IBUPROFEN 400 MG TAB ONE (20:00)
[2021-12-09] MEDS ORDERED: TETANUS & DIPHTHERIA TOX,ADULT 0.5 ML VIAL ONE (20:00)
--- NOTE | 2021-12-09 20:05 | ER ---
Nurse's Notes [facility] Name: Lotus Choi Age: 66 yrs Sex: Female : 1955 Arrival Date: 12/09/2021 Time: 16:15 Bed 12 Private MD: Diagnosis: Contusion of right upper arm;Abrasion of right elbow;Contusion of right knee;Fall on same level from slipping, tripping and stumbling without subsequent striking against object Presentation: 12/09 17:23 Chief complaint: Patient states: fall from standing, did not hi head, pain to right iw arm.forearm, right knee. Care prior to arrival: None. 17:23 Method Of Arrival: Ambulatory iw 17:23 Acuity: JENNIFER 4 iw Historical: - Allergies: 17:24 No Known Allergies; iw - PMHx: 17:24 Diabetes - NIDDM; Hypothyroidism; Hypertension; iw - Immunization history:: Adult Immunizations up to date. - Social history:: Smoking status: unknown. Screenin:22 Abuse screen: Denies threats or abuse. Nutritional screening: No deficits noted. bb Tuberculosis screening: No symptoms or risk factors identified. Fall Risk None identified. Assessment: 20:22 General: Appears in no apparent distress. uncomfortable. Pain: Complains of pain in bb right arm. Neuro: Level of Consciousness is awake, alert, obeys commands, Oriented to person, place, time, situation. Cardiovascular: Capillary refill < 3 seconds Patient's skin is warm and dry. Respiratory: Respiratory effort is even, unlabored, Respiratory pattern is regular. GI: No signs and/or symptoms were reported involving the gastrointestinal system. Derm: Skin is pink, warm \T\ dry. skin tear to right forearm. Musculoskeletal: Circulation, motion, and sensation intact. Reports pain in right arm. 20:26 Reassessment: Patient is alert, oriented x 3, equal unlabored respirations, skin bb warm/dry/pink. pt verbalized understanding of and agrees to plan of care discharge instructions given pt ambulated with steady gait to exit accompanied by family. Vital Signs: 20:22 BP 132 / 75; Pulse 69; Resp 16 S; Temp 98.5(O); Pulse Ox 94% on R/A; bb ED Course: 16:15 Patient arrived in ED. am2 17:23 Triage completed. iw 17:24 Arm band placed on. iw 17:58 Charles Crum PA is PHCP. cp 17:58 Cristobal Fishman MD is Attending Physician. cp 18:27 Humerus Right XRAY In Process Unspecified. EDMS 18:27 Forearm Right XRAY In Process Unspecified. EDMS 18:27 Knee Right 3 View XRAY In Process Unspecified. EDMS 20:05 Wound care: to skin tear was cleaned with soap and water, dressed with Neosporin, band bb aid. 20:10 Sling applied to right arm. bb 20:22 Patient has correct armband on for positive identification. bb 20:22 No provider procedures requiring assistance completed. Patient did not have IV access bb during this emergency room visit. Administered Medications: 20:04 Drug: Tetanus-Diphtheria Toxoid Adult 0.5 ml {Return Clerk: Q Chip. Exp: bb 11/01/2023. Lot #: [id number]. } Route: IM; Site: right deltoid; 20:21 Follow up: Response: No adverse reaction bb 20:04 CANCELLED (Physician Discretion): Hydrocodone-Acetaminophen (7.5 mg-325 mg) 1 tabs PO bb once; RASS on ADMIN: Combtv4, Very Agttd3, Agttd2, Rstlss1, AlertClm0, Drwsy-1, Lt Sdtn-2, Mod Sdtn-3, Dp Sdtn-4, UnArsble-5 20:04 Drug: Ibuprofen 800 mg Route: PO; bb 20:21 Follow up: Response: No adverse reaction bb 20:21 Drug: Tylenol 1000 mg Route: PO; bb 20:22 Follow up: Response: Medication administered at discharge. bb Outcome: 20:04 Discharge ordered by MD. cp 20:26 Discharged to home ambulatory, with family. bb 20:26 Condition: stable 20:26 Discharge instructions given to patient, Instructed on discharge instructions, follow up and referral plans. medication usage, Demonstrated understanding of instructions, follow-up care, medications, Prescriptions given X 2. 20:27 Patient left the ED. bb Signatures: Dispatcher [employer] EDMS Lotus Mcgowan RN RN bb Nika Simental RN RN Charles Crum PA PA cp Moreno, Amanda am2
--- NOTE | 2021-12-09 20:05 | EDPHYS ---
Physician Documentation [facility] Name: Lotus Choi Age: 66 yrs Sex: Female : 1955 Arrival Date: 12/09/2021 Time: 16:15 Bed 12 Private MD: ED Physician Cristobal Fishman HPI: 12/09 19:00 This 66 yrs old Female presents to ER via Ambulatory with complaints of Fall Injury, cp Arm Injury, Leg Pain. 19:00 Details of fall: The patient fell from an upright position, while walking, and struck a cp concrete surface. Onset: The symptoms/episode began/occurred today. Associated injuries: The patient sustained right arm, right knee. Historical: - Allergies: 17:24 No Known Allergies; iw - PMHx: 17:24 Diabetes - NIDDM; Hypothyroidism; Hypertension; iw - Immunization history:: Adult Immunizations up to date. - Social history:: Smoking status: unknown. ROS: 19:05 Constitutional: Negative for body aches, chills, fever, poor PO intake. cp 19:05 Neck: Negative for pain with movement, pain at rest, stiffness. cp 19:05 Cardiovascular: Negative for chest pain, edema, palpitations. 19:05 Respiratory: Negative for cough, shortness of breath, wheezing. 19:05 Abdomen/GI: Negative for abdominal pain, nausea, vomiting, and diarrhea. 19:05 MS/extremity: Positive for pain, of the right arm and right knee, Negative for decreased range of motion, deformity. 19:05 Neuro: Negative for altered mental status, headache, loss of consciousness, syncope, weakness. 19:05 All other systems are negative. Exam: 19:10 Head/Face: Normocephalic, atraumatic. cp 19:10 Constitutional: The patient appears in no acute distress, alert, awake, non-toxic, well developed, well nourished. 19:10 Eyes: Periorbital structures: appear normal, Conjunctiva: normal, no exudate, no cp injection, Lids and lashes: appear normal, bilaterally. 19:10 ENT: External ear(s): are unremarkable, Nose: is normal, Mouth: Lips: moist, Oral mucosa: moist, Posterior pharynx: Airway: no evidence of obstruction, patent. 19:10 Neck: C-spine: vertebral tenderness, is not appreciated, crepitus, is not appreciated, ROM/movement: is normal, is supple, without pain, no range of motions limitations. 19:10 Chest/axilla: Inspection: normal. 19:10 Cardiovascular: Rate: normal, Rhythm: regular. 19:10 Respiratory: Respirations: normal, no use of accessory muscles, no retractions, labored breathing, is not present. 19:10 Abdomen/GI: Exam negative for discomfort, distension, guarding, Inspection: abdomen appears normal. 19:10 Back: pain, is absent, ROM is normal. 19:10 Musculoskeletal/extremity: Extremities: grossly normal except: noted in the right arm: abrasion, pain, There is no evidence of decreased ROM, deformity, noted in the right knee: abrasion, swelling, tenderness, no evidence of decreased ROM, deformity, ROM: limited passive range of motion due to pain, in the right upper arm, Pulses: noted to be 2+ in the right radial artery. 19:10 Neuro: Orientation: to person, place \T\ time. Mentation: is normal, Sensation: is normal, Gait: is steady, at a normal pace, without difficulty. Vital Signs: 20:22 BP 132 / 75; Pulse 69; Resp 16 S; Temp 98.5(O); Pulse Ox 94% on R/A; bb MDM: 19:22 Patient medically screened. cp 20:00 Differential diagnosis: closed head injury, contusion, fracture, laceration, multiple cp trauma. 20:04 Data reviewed: vital signs, nurses notes, radiologic studies, plain films. cp 20:04 Test interpretation: by ED physician or midlevel provider: plain radiologic studies. cp Counseling: I had a detailed discussion with the patient and/or guardian regarding: the historical points, exam findings, and any diagnostic results supporting the discharge/admit diagnosis, radiology results, to return to the emergency department if symptoms worsen or persist or if there are any questions or concerns that arise at home. Response to treatment: the patient's symptoms have mildly improved after treatment, and as a result, I will discharge patient. 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 Exp: bb 11/01/2023. Lot #: [id number]. } Route: IM; Site: right deltoid; 20:21 Follow up: Response: No adverse reaction bb 20:04 CANCELLED (Physician Discretion): Hydrocodone-Acetaminophen (7.5 mg-325 mg) 1 tabs PO bb once; RASS on ADMIN: Combtv4, Very Agttd3, Agttd2, Rstlss1, AlertClm0, Drwsy-1, Lt Sdtn-2, Mod Sdtn-3, Dp Sdtn-4, UnArsble-5 20:04 Drug: Ibuprofen 800 mg Route: PO; bb 20:21 Follow up: Response: No adverse reaction bb 20:21 Drug: Tylenol 1000 mg Route: PO; bb 20:22 Follow up: Response: Medication administered at discharge. bb Disposition Summary: 12/09/21 20:04 Discharge Ordered Location: Home cp Problem: new cp Symptoms: have improved cp Condition: Stable cp Diagnosis - Contusion of right upper arm cp - Abrasion of right elbow cp - Contusion of right knee cp - Fall on same level from slipping, tripping and stumbling without subsequent cp striking against object Followup: cp - With: Private Physician - When: 2 - 3 days - Reason: Recheck today's complaints Discharge Instructions: - Discharge Summary Sheet cp - Contusion cp - Shoulder Range of Motion Exercises cp Forms: - Medication Reconciliation Form cp - Thank You Letter cp - Antibiotic Education cp - Prescription Opioid Use cp Prescriptions: - Ibuprofen 800 mg Oral Tablet - take 1 tablet by ORAL route every 8 hours As needed take with food; 30 tablet; cp Refills: 0, Product Selection Permitted - Cyclobenzaprine 10 mg Oral Tablet - take 1 tablet by ORAL route every 8 hours As needed; 15 tablet; Refills: 0, cp Product Selection Permitted Addendum: 12/11/2021 18:40 Co-signature as Attending Physician, Cristobal lorenzo a2 Signatures: Dispatcher [employer] Lotus Cardenas RN RN bb Williams, Irene, RN RN iw Charles Crum, ROBERT PA Cristobal Early MD MD ma2 Corrections: (The following items were deleted from the chart) 12/09 20:04 19:36 Hydrocodone-Acetaminophen (7.5 mg-325 mg) 1 tabs PO once; RASS on ADMIN: Combtv4, bb Very Agttd3, Agttd2, Rstlss1, AlertClm0, Drwsy-1, Lt Sdtn-2, Mod Sdtn-3, Dp Sdtn-4, UnArsble-5 ordered. cp 12/10 18:49 12/09 19:00 Associated injuries: The patient sustained right arm, left knee, cp cp
[2021-12-09] MEDS ORDERED: ACETAMINOPHEN 500 MG TAB ONE (20:14)
[2021-12-10 08:08] VITALS: BP 132/75; TEMP 98.5; O2SAT 94
== END 2021-12-09 20:27 | disposition home or self-care (01) ==
LOC: ER 16:10
DX: S50.311A Abrasion of right elbow, initial encounter (principal); S40.021A Contusion of right upper arm, initial encounter; S80.01XA Contusion of right knee, initial encounter; W01.0XXA Fall on same level from slipping, tripping and stumbling without subsequent striking against object, initial encounter; Y93.01 Activity, walking, marching and hiking; Z23 Encounter for immunization; E11.9 Type 2 diabetes mellitus without complications; I10 Essential (primary) hypertension
CPT/HCPCS: 90471; 90714; 99284

== ENCOUNTER 2023-02-15 11:17 | Day surgery (SDC) | payer OTHER ==
[2023-02-12 15:04] LABS: Potassium 4.1 mEq/L (3.5-5.1)
[2023-02-15] MEDS ORDERED: NA CHLORIDE 0.9% 1,000 ML ONE (11:59)
[2023-02-15] MEDS ORDERED: propofoL 200 MG/20 ML VIAL IV ONE ×2 (12:40)
[2023-02-15] MEDS ORDERED: LIDOCAINE 1% MPF 5 ML VIAL ONE (12:40)
[2023-02-15] MEDS ORDERED: EPHEDRINE SULF 50 MG/ML VIAL ONE (13:36)
[2023-02-15 14:20] VITALS: BP 98/66; TEMP 97.1; O2SAT 95
--- NOTE | 2023-02-15 17:17 | EKG ---
Test Date: 2023-02-12 Test Time: 14:00:22 Air Moving Technician: CRUZ MEASUREMENT RESULTS: Intervals: Rate: 85 ID: [id number] QRSD: 86 QT: 372 QTc: 442 [place]: P: 27 ID: [id number] QRS: -11 T: 52 INTERPRETIVE STATEMENTS: Sinus rhythm with premature atrial complexes Minimal voltage criteria for LVH, may be normal variant Inferior infarct, age undetermined Cannot rule out Anterior infarct, age undetermined Abnormal ECG Compared to ECG 12/26/2018 11:30:24 Left ventricular hypertrophy now present Aberrant conduction of supraventricular beat(s) no longer present Myocardial infarct finding still present Electronically Signed On 02-15-23 17:12:23 CDT by Rojelio Smyth
== END 2023-02-15 14:15 | disposition home or self-care (01) ==
LOC: OR 11:17
PROVIDERS: ATTEND Surgery
PROC: 0DB78ZX Excision of Stomach, Pylorus, Via Natural or Artificial Opening Endoscopic, Diagnostic (ICD-10-PCS; 2023-02-15)
PROC: 0DB68ZX Excision of Stomach, Via Natural or Artificial Opening Endoscopic, Diagnostic (ICD-10-PCS; 2023-02-15)
PROC: 0DB58ZX Excision of Esophagus, Via Natural or Artificial Opening Endoscopic, Diagnostic (ICD-10-PCS; 2023-02-15)
PROC: 0DJD8ZZ Inspection of Lower Intestinal Tract, Via Natural or Artificial Opening Endoscopic (ICD-10-PCS; principal; 2023-02-15 13:00)
PROC: 0DB98ZX Excision of Duodenum, Via Natural or Artificial Opening Endoscopic, Diagnostic (ICD-10-PCS; 2023-02-15 13:00)
DX: Z12.11 Encounter for screening for malignant neoplasm of colon (principal); K21.9 Gastro-esophageal reflux disease without esophagitis; R10.13 Epigastric pain; K29.80 Duodenitis without bleeding; K44.9 Diaphragmatic hernia without obstruction or gangrene; K57.30 Diverticulosis of large intestine without perforation or abscess without bleeding; K64.4 Residual hemorrhoidal skin tags; K29.50 Unspecified chronic gastritis without bleeding
CPT/HCPCS: 93005; 80048; 36415; 88312; 82947; 88305; 45378; 43239; J2704 ×2; J2001; J7030